=== PATIENT | female | born 1990 | race Caucasian/White ===

== ENCOUNTER 2017-06-16 09:43 | Emergency (ER) | payer OTHER ==
[2017-06-16 09:49] VITALS: BP 147/88; BMI 30.2
[2017-06-16 10:24] LABS: BILIRUBIN,URINE NEGATIVE (NEGATIVE); BLOOD/HEMOGLOBIN,URINE 5+ (NEGATIVE); GLUCOSE, URINE NEGATIVE (NEGATIVE); KETONES,URINE NEGATIVE (NEGATIVE); LEUKOCYTE ESTERASE ,URINE 3+ (NEGATIVE); NITRITES,URINE NEGATIVE (NEGATIVE); PROTEIN,URINE 3+ (NEGATIVE); UROBILINOGEN,URINE NORMAL (NORMAL)
[2017-06-16 10:32] LABS: APPEARANCE,URINE CLOUDY (CLEAR); COLOR,URINE YELLOW (YELLOW)
[2017-06-16 10:33] LABS: BACTERIA,URINE 1+ /HPF (NEGATIVE); SQUAMOUS EPITHELIAL CELL,UR RARE /HPF (NEGATIVE)
[2017-06-16] MEDS ORDERED: ROCEPHIN VIAL 1 GM IM ONE (10:40)
[2017-06-16] MEDS ORDERED: XYLOCAINE 1 % (PLAIN) ONE (10:42)
[2017-06-16] MEDS ORDERED: ROCEPHIN VIAL 1 GM ONE (10:42)
--- NOTE | 2017-06-16 10:44 | DR.GENAD ---
HPI - PCP Primary Care Physician: CHARLES - Complaint/Symptoms Chief Complaint Doctors Comments: Patient denies fever. She has a history of UTI Chief Complaint:: PATIENT STATED THAT SHE IS HURTING IN LOWER ABD. PATIENT HAS BLOOD IN HER URINE AND ALSO HAVING PAIN THAT IS RADIATING INTO HER BACK. - Source History Provided: Patient - Mode of Arrival Mode of Arrival: Ambulatory - Timing Onset of Chief Complaint: 06/15/17 PMH - PMH Past Medical History: Yes Past Medical History Comment: KIDNEY INFECTION Past Surgical History: Yes Surgical History: , Cholecystectomy - Family History History of Family Medical Conditions: Yes Family Medical History: Diabetes Mellitus, Cancer, Heart Failure, Hypertension - Social History Does patient currently use any type of tobacco product: No Have you used tobacco products in the last 12 months: No Type of Tobacco Use: None Does any household member use tobacco: No Alcohol Use: None Do you use any recreational Drugs:: No Lives With: Family Lives Where: Home - infectious screening In the last 2 months have you had wt loss of >10#?: NO Have you had fever, night sweats or hemotysis?: No Have you traveled outside the country in the last 6 months?: No Isolation: Standard ROS - Review of Systems Eyes: No Symptoms Reported ENTM: No Symptoms Reported Respiratoy: No Symptoms Reported Cardiovascular: No Symptoms Reported Gastrointestinal/Abdominal: No Symptoms Reported Genitourinary: No Symptoms Reported Neurological: No Symptoms Reported Musculoskeletal: No Symptoms Reported Integumentary: No Symptoms Reported Hematologic/Lymphatic: No Symptoms Reported Endocrine: No Symptoms Reported Psychiatric: No Symptoms Reported All Other Systems: Reviewed and Negative PE - Vital Signs Vitals: Temperature 98.6 F Pulse Rate 83 Respiratory Rate 20 Blood Pressure 147/88 O2 Sat by Pulse Oximetry 100 - General Limitations: No Limitations General Appearance: Alert, In No Apparent Distress - Head Head Exam: Normal Inspection, Atraumatic - Eyes Eye exam: Normal Appearance, PERRL, EOMI - ENT ENT Exam: Normal Exam External Ear Exam: Normal External Inspection TM/Canal Exam: Bilateral Normal Nose Exam: Normal Nose Exam Mouth Exam: Normal Inspection Throat Exam: Normal Inspection - Neck Neck Exam: Normal Inspection, Full ROM - Chest Chest Inspection: Normal Inspection - Respiratory Respiratory Exam: Normal Lung Sounds Bilat Respiratory Exam: Bilateral Clear to Auscultation - Cardiovascular Cardiovascular Exam: Regular Rate, Normal Rhythm - Abdominal Exam Abdominal Exam: Normal Inspection, Normal Bowel Sounds Abdominal Tenderness: Suprapubic - Extremities Extremities Exam: Normal Inspection - Back Back Exam: Normal Inspection - Neurologic Neurological Exam: Alert, Oriented X3, CN II-XII Intact - Psychiatric Psychiatric Exam: Normal Affect - Skin Skin Exam: Warm, Dry, Intact ROR - Labs Reviewed Laboratory Results Reviewed?: Yes (UA: 3+leukocytes, TNTC wbc, 5+bld) Laboratory: Specimen Type Clean catch urine 06/16/17 10:04 Urine Color Yellow (YELLOW) 06/16/17 10:04 Urine Appearance Cloudy (CLEAR) 06/16/17 10:04 Urine pH 6.0 (5.0 - 8.0) 06/16/17 10:04 Ur Specific [place] 1.010 (1.000-1.030) 06/16/17 10:04 Urine Protein 3+ (NEGATIVE) 06/16/17 10:04 Urine Glucose (UA) Negative (NEGATIVE) 06/16/17 10:04 Urine Ketones Negative (NEGATIVE) 06/16/17 10:04 Urine Occult Blood 5+ (NEGATIVE) 06/16/17 10:04 Urine Nitrite Negative (NEGATIVE) 06/16/17 10:04 Urine Bilirubin Negative (NEGATIVE) 06/16/17 10:04 Urine Urobilinogen Normal (NORMAL) 06/16/17 10:04 Ur Leukocyte Esterase 3+ (NEGATIVE) 06/16/17 10:04 Urine RBC 3-5 /HPF (NEGATIVE) 06/16/17 10:04 Urine WBC Tntc /HPF (NEGATIVE) 06/16/17 10:04 Ur Squamous Epith Cells Rare /HPF (NEGATIVE) 06/16/17 10:04 Urine Bacteria 1+ /HPF (NEGATIVE) 06/16/17 10:04 Ur Culture Indicated? Yes/culture set up 06/16/17 10:04 - Diagnosis Discharge Problem: UTI (urinary tract infection) Qualifiers: Urinary tract infection type: acute cystitis Hematuria presence: with hematuria Qualified Code(s): N30.01 - Acute cystitis with hematuria - Discharge Plan Condition: Stable - Follow ups/Referrals Follow ups/Referrals: NFD,None [Primary Care Provider] - 3 days - Instructions
== END 2017-06-16 11:11 | disposition home or self-care (01) ==
LOC: ER 09:54
DX: N30.01 Acute cystitis with hematuria (principal); B96.29 Other Escherichia coli [E. coli] as the cause of diseases classified elsewhere
CPT/HCPCS: 81001; 87086; 87088; 87186; 96372; 99282; J0696; J2001